=== PATIENT | male | born 1960 | race Caucasian/White ===

== ENCOUNTER → 2018-05-31 16:56 | Outpatient (CLI) | payer MEDICARE ==
[2018-05-31 18:52] LABS: HEMATOCRIT 44.8 % (42.0-54.0); MCH 32.3 pg (26.0-34.0); MCHC 35.7 g/dL (31.0-37.0); MCV 90.3 fL (80.0-100.0); MEAN PLATELET VOLUME 10.9 fL (7.4-10.4); PLATELET COUNT 199 10x3/uL (130-400); RBC 4.96 10x6/uL (4.20-6.10); RDW 12.6 % (11.5-14.5); WBC 5.6 10x3/uL (4.8-10.8)
[2018-05-31 19:50] LABS: ERYTHROCYTE SEDIMENTATION RATE 8 mm/hr (0-20)
[2018-05-31 21:33] LABS: EOSINOPHILS 2 % (0-7); LYMPHOCYTES 58 % (15-50); NEUTROPHILS 40 % (40-80); PLATELET ESTIMATE NORMAL
[2018-06-02 06:15] LABS: HEPATITIS C ANTIBODY 0.1 S/CO RAT (0.0-0.9)
[2018-06-02 07:33] LABS: IMMUNOGLOBULIN A 366 mg/dL (90-386); IMMUNOGLOBULIN G 1102 mg/dL (700-1600); IMMUNOGLOBULIN M 151 mg/dL (20-172)
[2018-06-02 13:16] LABS: ANA REFLEX - DIRECT Negative (Negative)
[2018-06-02 14:16] LABS: BASOS 0 % (Not Estab.); CD4 - % CD4 POS. LYMPH 34.1 % (30.8-58.5); CD4 - ABSOLUTE CD4 HELPER 1023 /uL (359-1519); EOS 2 % (Not Estab.); EOS (ABSOLUTE) 0.1 x10E3/uL (0.0-0.4); HEMATOCRIT 45.2 % (37.5-51.0); HEMOGLOBIN 15.7 g/dL (13.0-17.7); LYMPHS 56 % (Not Estab.); MCH 32.3 pg (26.6-33.0); MCHC 34.7 g/dL (31.5-35.7); MCV 93 fL (79-97); MONOCYTES 8 % (Not Estab.); MONOCYTES (ABSOLUTE) 0.4 x10E3/uL (0.1-0.9); NEUTROPHILS 34 % (Not Estab.); NEUTROPHILS (ABSOLUTE) 1.9 x10E3/uL (1.4-7.0); PLATELETS 238 x10E3/uL (150-379); RBC 4.86 x10E6/uL (4.14-5.80); RDW 13.4 % (12.3-15.4); WBC 5.4 x10E3/uL (3.4-10.8)
[2018-06-05 15:17] LABS: RMSF IGM 0.69 index (0.00-0.89)
[2018-06-06 15:19] LABS: IMMUNOGLOBULIN E 76 IU/mL (0-100)
== END | disposition home or self-care (01) ==
LOC: D.LABREF 16:56
PROVIDERS: Student in an Organized Health Care Education/Training Program
DX: M25.50 Pain in unspecified joint (principal); R89.9 Unspecified abnormal finding in specimens from other organs, systems and tissues; Z11.59 Encounter for screening for other viral diseases